=== PATIENT | female | born 1950 | race Caucasian/White ===

== ENCOUNTER 2019-06-02 02:53 | Emergency (ER) | payer MEDICARE, OTHER ==
[~2019-06-02] VITALS: Ht 165.1 cm; Wt 79.4 kg
[~2019-06-02 02:53] MED LIST: METO50TA4 PO
[2019-06-02 03:02] VITALS: BP 204/115
--- NOTE | 2019-06-02 03:15 | ER.PDOC ---
General Chief Complaint: General Complaint Stated Complaint: HIGH BLOOD PRESSURE TRAVEL OUT OF US: No Time seen by MD: 03:14 Source: patient Exam Limitations: no limitations History of Present Illness Initial Comments Elevated blood pressure causing her to have headache. Timing/Duration: 1-3 hours Severity: moderate Associated Symptoms: headaches Allergies: Coded Allergies: meperidine (Verified Allergy, Severe, 04/18/17) penimepicycline (Verified Allergy, Severe, Swelling, 04/18/17) Penicillins (Verified Allergy, Unknown, Rash, 06/02/19) Home Meds Reported Medications Metoprolol Succinate (TOPROL XL) 50 Mg Tab.er.24h, 1 TAB PO DAILY, #30 TAB 5 Refills 04/18/17 Past Medical History Medical History: diabetes, hypertension Surgical History: appendectomy, hysterectomy, tonsillectomy LMP (females 10-50): hysterectomy Social History Smoking: non-smoker Alcohol Use: none Drug Use: none Review of Systems Constitutional: no symptoms reported Respiratory: no symptoms reported Cardiovascular: no symptoms reported Gastrointestinal: no symptoms reported Genitourinary: no symptoms reported All Other Systems: Reviewed and Negative Physical Exam General Appearance: No Apparent Distress, WD/WN Neck: Non-Tender, Full Range of Motion, Supple, Normal Inspection Respiratory: chest non-tender, lungs clear, normal breath sounds, no respiratory distress CVS: reg rate & rhythm, no murmur, no gallop, pulses nml, nml capillary refill Gastrointestinal: Normal Bowel Sounds, No Organomegaly, No Pulsatile Mass, Non Tender Back: Normal Inspection Extremities: Normal Range of Motion Neurologic/Psychiatric: installation engineer II-XII NML as Tested Skin: Normal Color Results/Orders Results/Orders Orders - JAVAD ARENAS MD Cbc With Auto Diff (06/02/19 03:12) Comprehensive Metabolic Panel (06/02/19 03:12) Troponin I (06/02/19 03:12) Xr Chest 1v (06/02/19 03:12) Ekg-Routine (06/02/19 03:12) Ct Head Wo Contrast (06/02/19 03:12) Lorazepam (Ativan) (06/02/19 03:16) Lorazepam (Ativan) (06/02/19 03:17) Nitroglycerin (Nitrostat) (06/02/19 04:00) Vital Signs Date Time Temp Pulse Resp B/P (MAP) Pulse Ox O2 Delivery O2 Flow Rate FiO2 06/02/19 03:02 98.0 78 16 96 Room Air 06/02/19 03:02 98.0 78 16 06/02/19 03:02 98.0 78 16 204/115 (144) 96 Room Air Administered Medications Medications (Trade) Dose Ordered Sig/Monica Route PRN Reason Start Time Stop Time Status Last Admin Dose Admin Lorazepam (Ativan) 0.5 mg STAT STAT PO 06/02/19 03:16 06/02/19 03:17 DC 06/02/19 03:26 0.5 MG Laboratory Tests Test 06/02/19 03:12 White Blood Count 5.4 10^3/uL (4.5-11.0) Red Blood Count 5.08 10^6/uL (4.00-5.20) Hemoglobin 14.8 g/dL (12.0-15.0) Hematocrit 41.8 % (36.0-46.0) Mean Corpuscular Volume 82.3 fL (78-100) Mean Corpuscular Hemoglobin 29.1 pg (26-34) Mean Corpuscular Hemoglobin Concent 35.4 g/dL (33-37) Red Cell Distribution Width 14.2 % (11.5-14.5) Platelet Count 190 10^3/uL (150-400) Mean Platelet Volume 9.8 fL (7.8-11.0) Neutrophils (%) (Auto) 52.9 % (41.0-85.0) Lymphocytes (%) (Auto) 35.3 % (24.0-44.0) Monocytes (%) (Auto) 7.2 % (5.0-12.0) Neutrophils # (Auto) 2.9 10^3/uL (1.8-7.7) Lymphocytes # (Auto) 1.9 10^3/uL (1.0-4.8) Monocytes # (Auto) 0.4 10^3/uL (0.3-0.8) Absolute Immature Granulocyte (auto 0.02 10^3 u/L (0-2) Immature Granulocytes % 0.40 % (0.00-0.50) Eosinophils % 3.3 % (0.0-5.0) Basophils % 0.9 % (0.0-0.2) H Basophils # 0.1 10^3/uL (0.0-0.1) Eosinophil Count 0.2 10^3/uL (0.0-0.2) Sodium Level 142 mmol/L (132-145) Potassium Level 3.8 mmol/L (3.6-5.2) Chloride Level 105.0 mmol/L (96-109) Carbon Dioxide Level 25.5 mmol/L (20.0-32) Anion Gap 15.3 Blood Urea Nitrogen 19 mg/dL (7-18) H Creatinine 0.80 mg/dL (0.59-1.40) Estimated GFR () 85.8 (>/=60) BUN/Creatinine Ratio 23.0 Glucose Level 211 mg/dL (70-110) H Calcium Level 9.9 mg/dL (8.4-10.5) Total Bilirubin 0.7 mg/dL (0.2-1.0) Aspartate Amino Transferase (AST) 38 U/L (0-35) H Alanine Aminotransferase (ALT) 37 U/L (12-78) Alkaline Phosphatase 102 U/L (50-136) Troponin I < 0.02 ng/mL (0.00-0.05) Total Protein 7.3 g/dL (6.4-8.2) Albumin 3.9 g/dL (3.4-5.0) Globulin 3.4 EKG/XRAY/CT/US EKG: NSR XRAY: chest (No active disease) CT Comments: Nothing acute intracranially Course Vitals & review Data Vital Sign - Last 24 Hours 06/02/19 06/02/19 06/02/19 03:02 03:02 03:02 Temp 98.0 98.0 98.0 Pulse 78 78 78 Resp 16 16 16 B/P (MAP) 204/115 (144) Pulse Ox 96 96 O2 Delivery Room Air Room Air Laboratory Tests Test 06/02/19 03:12 White Blood Count 5.4 10^3/uL Red Blood Count 5.08 10^6/uL Hemoglobin 14.8 g/dL Hematocrit 41.8 % Mean Corpuscular Volume 82.3 fL Mean Corpuscular Hemoglobin 29.1 pg Mean Corpuscular Hemoglobin Concent 35.4 g/dL Red Cell Distribution Width 14.2 % Platelet Count 190 10^3/uL Mean Platelet Volume 9.8 fL Neutrophils (%) (Auto) 52.9 % Lymphocytes (%) (Auto) 35.3 % Monocytes (%) (Auto) 7.2 % Neutrophils # (Auto) 2.9 10^3/uL Lymphocytes # (Auto) 1.9 10^3/uL Monocytes # (Auto) 0.4 10^3/uL Absolute Immature Granulocyte (auto 0.02 10^3 u/L Immature Granulocytes % 0.40 % Eosinophils % 3.3 % Basophils % 0.9 % Basophils # 0.1 10^3/uL Eosinophil Count 0.2 10^3/uL Sodium Level 142 mmol/L Potassium Level 3.8 mmol/L Chloride Level 105.0 mmol/L Carbon Dioxide Level 25.5 mmol/L Anion Gap 15.3 Blood Urea Nitrogen 19 mg/dL Creatinine 0.80 mg/dL Estimated GFR () 85.8 BUN/Creatinine Ratio 23.0 Glucose Level 211 mg/dL Calcium Level 9.9 mg/dL Total Bilirubin 0.7 mg/dL Aspartate Amino Transf (AST/SGOT) 38 U/L Alanine Aminotransferase (ALT/SGPT) 37 U/L Alkaline Phosphatase 102 U/L Troponin I < 0.02 ng/mL Total Protein 7.3 g/dL Albumin 3.9 g/dL Globulin 3.4 Sepsis Infection Criteria Pres: None O2 Sat by Pulse Oximetry: 96 Departure Time of Disposition: 03:48 Disposition: 01 HOME, SELF-CARE Impression: Primary Impression: Hypertensive urgency Condition: Improved Referrals: Mitzi HU (PCP) PRIMARY CARE PROVIDER Additional Instructions: Continue home medications Keep a blood pressure dairy F/U with your PCP in 2-3 days Duration or Time Spent with Pa: 60 mins JAVAD ARENAS MD Jun 02, 2019 03:15
[2019-06-02] MEDS ORDERED: ATIVAN PO STA (03:16)
[2019-06-02] MEDS ORDERED: ATIVAN ONE (03:17)
--- NOTE | 2019-06-02 03:17 | NUR ---
TO CT PATIENT TO CT VIA WHEELCHAIR WITH RENNY ROSALES
[2019-06-02 03:20] LABS: BASOPHIL # 0.1 10^3/uL (0.0-0.1); BASOPHIL % 0.9 % (0.0-0.2); EOSINOPHIL # 0.2 10^3/uL (0.0-0.2); EOSINOPHIL % 3.3 % (0.0-5.0); HEMOGLOBIN 14.8 g/dL (12.0-15.0); LYMPHOCYTES # 1.9 10^3/uL (1.0-4.8); LYMPHOCYTES % 35.3 % (24.0-44.0); MEAN CELL HGB 29.1 pg (26-34); MEAN CELL HGB CONCENTRATION 35.4 g/dL (33-37); MEAN CORP VOLUME 82.3 fL (78-100); MEAN PLATELET VOLUME 9.8 fL (7.8-11.0); MONOCYTES # 0.4 10^3/uL (0.3-0.8); MONOCYTES % 7.2 % (5.0-12.0); NEUTROPHIL # 2.9 10^3/uL (1.8-7.7); NEUTROPHILS % 52.9 % (41.0-85.0); RED CELL DISTRIBUTION WIDTH 14.2 % (11.5-14.5); WHITE BLOOD CELL 5.4 10^3/uL (4.5-11.0)
--- NOTE | 2019-06-02 03:32 | PCM.EKG ---
[facility] Test Date: 2019-06-02 Test Time: 03:33:34 Pat Name: AVRIL KNOX Department: Room: Gender: F Cleaner Laboratory Equipment: ASPENNELSYSONAL : 1950 Requested By: JAVAD ARENAS Order Number: [id number] Reading MD: Javad ARENAS Measurements Intervals [place] Rate: 69 P: 37 CO: 168 QRS: 0 QRSD: 92 T: 26 QT: 398 QTc: 426 Interpretive Statements Normal sinus rhythm with sinus arrhythmia Normal ECG No previous ECG available for comparison Electronically Signed On 06-02-2019 6:28:42 CDT by Javad ARENAS Please click the below link to view image of tracing.
--- NOTE | 2019-06-02 03:38 | DIREP ---
PROCEDURE: CT HEAD BRAIN W/O CONTRAST TECHNIQUE:Contiguous 5.0 mm transaxial sections were obtained from the vertex to skull base without the use of intravenous contrast. COMPARISON:[facility], CT, CT HEAD BRAIN W/O CONTRAST, 04/18/2017, 02:50 PM. INDICATIONS:Headache FINDINGS: VENTRICLES:Within normal limits. CEREBRUM:No acute intracranial hemorrhage or mass effect. Del Toro-white matter differentiation within normal limits. Mild cortical atrophy. CEREBELLUM:Normal. BRAINSTEM:Normal. SKULL:Normal. SINUSES:Well pneumatized. OTHER:Negative. CONCLUSION: 1. No acute intracranial hemorrhage or mass effect. Dictated by: Michael Moreno MD on 06/02/2019 at 03:35 AM
--- NOTE | 2019-06-02 03:39 | DIREP ---
PROCEDURE:CHEST 1 VIEW COMPARISON:None. INDICATIONS:Elevated blood pressure FINDINGS: LUNGS/PLEURA:No focal consolidation, pleural effusion, or pneumothorax. VASCULATURE:Unremarkable pulmonary vasculature. Calcified, tortuous aorta. CARDIAC:Normal. No cardiac silhouette abnormality or cardiomegaly. MEDIASTINUM:Normal. No visible mass or adenopathy. BONES:Degenerative change without evidence of acute osseus abnormality. OTHER:Negative. CONCLUSION: 1. No acute cardiopulmonary process. Dictated by: Michael Moreno MD on 06/02/2019 at 03:37 AM
[2019-06-02 03:40] LABS: ALANINE AMINOTRANSFERASE(ML) 37 U/L (12-78); ALKALINE PHOSPHATASE 102 U/L (50-136); ASPARTATE AMINO TRANSFERASE 38 U/L (0-35); CALCIUM 9.9 mg/dL (8.4-10.5); CARBON DIOXIDE 25.5 mmol/L (20.0-32); GLUCOSE 211 mg/dL (70-110)
--- NOTE | 2019-06-02 03:50 | NUR ---
IV DC'D TIP INTACT, NO BLEEDING
[2019-06-02 03:53] VITALS: BP 174/85
[2019-06-02] MEDS ORDERED: NITROSTAT SL PRN (04:00)
== END 2019-06-02 03:53 | disposition home or self-care (01) ==
LOC: ER 02:53
DX: I16.0 Hypertensive urgency (principal); I10 Essential (primary) hypertension; E11.9 Type 2 diabetes mellitus without complications; Z79.899 Other long term (current) drug therapy; Z88.0 Allergy status to penicillin; Z88.5 Allergy status to narcotic agent; Z90.710 Acquired absence of both cervix and uterus
CPT/HCPCS: 36415; 70450; 71045; 80053; 84484; 85025; 93005; 99285

== ENCOUNTER → 2021-05-19 | Outpatient (CLI) | payer MEDICARE, OTHER | END | disposition home or self-care (01) | LOC: LAB 16:45 | PROVIDERS: ATTEND Nurse Practitioner Family | DX: U07.1 COVID-19 (principal); R06.02 Shortness of breath; R05 Cough; R53.83 Other fatigue; R50.9 Fever, unspecified; J06.9 Acute upper respiratory infection, unspecified | CPT/HCPCS: 87426 ==

== ENCOUNTER 2022-09-08 01:08 | Emergency (ER) | payer MEDICARE, OTHER ==
[~2022-09-08] VITALS: Ht 165.1 cm; Wt 81.6 kg
[2022-09-08 01:29] VITALS: BP 159/91
[2022-09-08] MEDS ORDERED: MORPHINE SULFATE IM STA (01:31)
--- NOTE | 2022-09-08 01:35 | ER.PDOC ---
General Chief Complaint: Extremities Stated Complaint: FOOT PAIN Time seen by MD: 01:33 Source: patient Exam Limitations: no limitations History of Present Illness Initial Comments Right foot and ankle pain, after patient mistakenly kicked a wood Onset: just prior to arrival Where: home Severity: moderate Context: twist Modifying Factors: pain on movement Allergies: Coded Allergies: meperidine (Verified Allergy, Severe, 04/18/17) penimepicycline (Verified Allergy, Severe, Swelling, 04/18/17) Penicillins (Verified Allergy, Unknown, Rash, 06/02/19) Home Meds Reported Medications Metoprolol Succinate (TOPROL XL) 50 Mg Tab.er.24h, 1 TAB PO DAILY, #30 TAB 5 Refills 04/18/17 Past Medical History Medical History: diabetes, hypertension Surgical History: appendectomy, hysterectomy, tonsillectomy Family History Significant Family History: no pertinent family hx Social History Smoking: non-smoker Alcohol Use: none Drug Use: none Review of Systems Constitutional: no symptoms reported EENTM: no symptoms reported Respiratory: no symptoms reported Cardiovascular: no symptoms reported Gastrointestinal: no symptoms reported Musculoskeletal: see HPI All Other Systems: Reviewed and Negative Physical Exam General Appearance: Alert, No Apparent Distress Foot: tenderness (Right foot without swelling or deformity) Ankle: tenderness (Right foot without swelling or deformity) Gait: limited by pain Neuro: sensation nml, motor nml Vascular: no vascular compromise Tendons: tendon function nml Leg/Knee/Thigh: uninjured above ankle Skin: warm/dry Head/ENT: nml inspection, pharynx nml Neck/Back: nml inspection, non-tender Resp/CVS: no resp distress Abdomen: non-tender, no organomegaly Results/Orders Results/Orders Orders - JAVAD ARENAS MD Xr Foot Rt (09/08/22 01:31) Xr Ankle 3v Rt (09/08/22 01:31) Morphine Sulfate (Morphine Sulfate) (09/08/22 01:31) Vital Signs Date Time Temp Pulse Resp B/P (MAP) Pulse Ox O2 Delivery O2 Flow Rate FiO2 09/08/22 01:29 97.8 83 18 159/91 (113) 97 Room Air* 0 21 09/08/22 01:29 97.8 83 18 97 Progress Progress X rays right ankle: Findings suspicious for an acute, nondisplaced, oblique fracture of the right distal fibular metaphysis extending into the medial ankle mortise. This is superimposed upon a remote healed fracture deformity of the distal fibula. 2. Mild soft tissue swelling about the right ankle, most prominent laterally, with a small tibiotalar joint effusion. Patient received a walking boot and crutches. ER DEPART Departure Time of Disposition: 02:38 Disposition: 01 HOME / SELF CARE / HOMELESS Impression: Primary Impression: Closed fibular fracture Additional Impression: Injury of foot, right Condition: Stable Referrals: Mitzi HU (PCP) PRIMARY CARE PROVIDER Additional Instructions: Ice 3 times a day for 3 days Ibuprofen Tramadol Follow-up with Dr. Christianson in 1 to 2 days, call for appointment Return to ED if worsening or concerns Duration or Time Spent with Pa: 10 min Problem Qualifiers Primary Impression: Closed fibular fracture Encounter type: initial encounter Fibula location: distal Fracture morphology: other fracture Laterality: right Qualified Codes: S82.831A - Other fracture of upper and lower end of right fibula, initial encounter for closed fracture Additional Impression: Injury of foot, right Encounter type: initial encounter Qualified Codes: S99.921A - Unspecified injury of right foot, initial encounter JAVAD ARENAS MD Sep 08, 2022 01:34
--- NOTE | 2022-09-08 02:23 | DIREP ---
PROCEDURE:XRAY ANKLE MIN 3VWS-RT COMPARISON:[facility], , XRAY FOOT MIN 3 VWS-RT, 09/08/2022, 01:36 AM. INDICATIONS:pain FINDINGS: BONES:There is a healed fracture deformity of the right distal fibular metaphysis. However, there is an apparent superimposed, nondisplaced, oblique fracture plane within the distal fibular metaphysis, which extends into the lateral ankle mortise (best visualized on the oblique view. No additional fracture. Small posterior and plantar calcaneal spurs. JOINTS:No dislocation. The ankle mortise is symmetric. Small tibiotalar effusion. Mild degenerative changes involving the midfoot. SOFT TISSUES:Mild soft tissue swelling about the ankle, most prominent laterally. OTHER:No additional findings. CONCLUSION: 1. Findings suspicious for an acute, nondisplaced, oblique fracture of the right distal fibular metaphysis extending into the medial ankle mortise. This is superimposed upon a remote healed fracture deformity of the distal fibula. 2. Mild soft tissue swelling about the right ankle, most prominent laterally, with a small tibiotalar joint effusion. 3. Additional chronic and degenerative findings, as above. Dictated by: Reagan Che MD on 09/08/2022 at 02:18 AM
--- NOTE | 2022-09-08 02:25 | DIREP ---
PROCEDURE:XRAY FOOT MIN 3 VWS-RT COMPARISON:[facility], , XRAY ANKLE MIN 3VWS-RT, 09/08/2022, 01:36 AM. INDICATIONS:Pain FINDINGS: BONES:Remote healed fracture of the right distal fibula. A suspected acute nondisplaced fracture of the distal fibular metaphysis is better visualized on the concurrent ankle radiographs. No acute fracture involving the foot. Small posterior and plantar calcaneal spurs. JOINTS:No dislocation. LisFranc alignment is normal. Mild degenerative changes involving the 1st MTP joint, midfoot, and scattered IP joints. SOFT TISSUES:No significant soft tissue swelling about foot. OTHER:No additional findings. CONCLUSION: 1. No acute abnormality involving the right foot. 2. Please see concurrent right ankle radiographs for description of a suspected acute, nondisplaced, right distal fibular fracture superimposed upon chronic fracture deformity. 3. Chronic and degenerative findings, as above. Dictated by: Reagan Che MD on 09/08/2022 at 02:22 AM
--- NOTE | 2022-09-08 02:45 | NUR ---
WALKING BOOT PATIENT FITTED FOR WALKING BOOT, PMS INTACT
[2022-09-08 02:50] VITALS: BP 151/89
== END 2022-09-08 02:50 | disposition home or self-care (01) ==
LOC: ER 01:08
DX: S82.831A Other fracture of upper and lower end of right fibula, initial encounter for closed fracture (principal); S99.921A Unspecified injury of right foot, initial encounter; E11.9 Type 2 diabetes mellitus without complications; I10 Essential (primary) hypertension; W22.03XA Walked into furniture, initial encounter; Y93.89 Activity, other specified; Y92.009 Unspecified place in unspecified non-institutional (private) residence as the place of occurrence of the external cause; Y99.8 Other external cause status; Z88.0 Allergy status to penicillin; Z88.5 Allergy status to narcotic agent; Z90.49 Acquired absence of other specified parts of digestive tract; Z90.710 Acquired absence of both cervix and uterus
CPT/HCPCS: 99284; 73610-RT; 73630-RT